=== PATIENT | male | born 1960 ===

== ENCOUNTER 2022-09-11 02:22 | Emergency (ER) | payer BC ==
[~2022-09-11] VITALS: Ht 180 cm; Wt 105.0 kg
--- NOTE | 2022-09-11 02:40 | ED Dyspnea ---
General Chief Complaint: Respiratory Problems Stated Complaint: SOA/WHEEZING Nursing Triage Note: coughing, wheezing, sob x1 week, worse tonight. Source of Information: Patient History of Present Illness Date Seen by Provider: September 11, 2022 Time Seen by Provider: 02:28 Initial Comments PT ARRIVES VIA POV PT STATES HE HAS BEEN ILL FOR THE LAST WEEK WITH COUGH, SHORTNESS OF BREATH AND WHEEZING SYMPTOMS HAVE BEEN WORSE TONIGHT NO FEVER NO SWELLING IN LEGS/ FEET OCCASIONAL SHARP PAIN IN CHEST PT HAS HISTORY OF RESTRICTIVE AIRWAY DISEASE, HE HAS USED XOPENEX POCKET NEBULIZER PRN IN THE PAST, BUT HAS NOT HAD TO USE ONE IN A LONG TIME. HE HAS NEVER REQUIRED A VENTILATOR HE HAS HISTORY ATRIAL FIBRILLATION, P.E. AND NSTEMI X 2, AND IS MAINTAINED ON ELIQUIS, FLECANIDE, METROPOLOL. HE HAS HAD COVID VACCINE X 3, AND FLU VACCINE FOR THIS SEASON NO HISTORY OF SMOKING, ALCOHOL OR DRUG USE. 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 Allergies and Home Medications Allergies Coded Allergies: moxifloxacin (Verified Allergy, Unknown, 09/11/22) Patient Home Medication List Home Medication List Reviewed: Yes Doxycycline Hyclate (Doxycycline Hyclate) 100 Mg Tablet, 100 MG PO BID Prescribed by: ANKITA SCHULTE on 09/11/22336 Levalbuterol HCl (Xopenex) 0.63 Mg/3 Ml Vial.neb, 0.63 MG INH Q8H Prescribed by: ANKITA SCHULTE on 09/11/22336 Methylprednisolone (Medrol) 4 Mg Tab.ds.pk, 4 MG PO UD Prescribed by: ANKITA SCHULTE on 09/11/22336 Review of Systems Review of Systems Constitutional: no symptoms reported EENTM: no symptoms reported Respiratory: see HPI, cough, short of breath, wheezing Cardiovascular: see HPI, chest pain; No edema Gastrointestinal: no symptoms reported Genitourinary: no symptoms reported Musculoskeletal: no symptoms reported Skin: no symptoms reported Psychiatric/Neurological: No Symptoms Reported Endocrine: No Symptoms Reported Hematologic/Lymphatic: No Symptoms Reported Past Jldaaaq-Snjeeq-Ibbsha Hx Patient Social History Tobacco Use?: No Substance use?: No Alcohol Use?: No Pt feels they are or have been: No Immunizations Up To Date First/Initial COVID19 Vaccinat: x3 Past Medical History Surgery/Hospitalization HX: restrictive airway dx, afib, p.e., nstemi x2 Respiratory: Yes (RESTRICTIVE AIRWAY DISEASE) Pulmonary Embolism Cardiac: Yes (NSTEMI) Atrial Fibrillation, Coronary Artery Disease, Heart Attack Neurological: No Genitourinary: No Gastrointestinal: No Musculoskeletal: No Endocrine: No HEENT: No Psychosocial: No Integumentary: No Blood Disorders: No Physical Exam Vital Signs Vital Signs - First Documented 09/11/22 09/11/22 02:28 03:19 Temp 36.2 Pulse 70 Resp 18 B/P (MAP) 118/72 (87) Pulse Ox 94 O2 Delivery Room Air O2 Flow Rate 0 FiO2 21 Capillary Refill : Less Than 3 Seconds Height, Weight, BMI Height: '" Weight: lbs. oz. 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 Skin: Normal Color, Warm/Dry Progress/Results/Core Measures Results/Orders Lab Results Laboratory Tests Test 09/11/22 02:30 09/11/22 02:34 Range/Units Influenza Type A (RT-PCR) Not Detected Not Detecte Influenza Type B (RT-PCR) Not Detected Not Detecte SARS-CoV-2 RNA (RT-PCR) Not Detected Not Detecte White Blood Count 6.1 4.3-11.0 10^3/uL Red Blood Count 4.48 4.30-5.52 10^6/uL Hemoglobin 14.5 13.3-17.7 g/dL Hematocrit 43 40-54 % Mean Corpuscular Volume 95 80-99 fL Mean Corpuscular Hemoglobin 32 25-34 pg Mean Corpuscular Hemoglobin Concent 34 32-36 g/dL Red Cell Distribution Width 13.2 10.0-14.5 % Platelet Count 214 130-400 10^3/uL Mean Platelet Volume 9.3 9.0-12.2 fL Immature Granulocyte % (Auto) 0 % Neutrophils (%) (Auto) 26 L 42-75 % Lymphocytes (%) (Auto) 51 H 12-44 % Monocytes (%) (Auto) 12 0-12 % Eosinophils (%) (Auto) 11 H 0-10 % Basophils (%) (Auto) 1 0-10 % Neutrophils # (Auto) 1.6 L 1.8-7.8 10^3/uL Lymphocytes # (Auto) 3.1 1.0-4.0 10^3/uL Monocytes # (Auto) 0.7 0.0-1.0 10^3/uL Eosinophils # (Auto) 0.7 H 0.0-0.3 10^3/uL Basophils # (Auto) 0.1 0.0-0.1 10^3/uL Immature Granulocyte # (Auto) 0.0 0.0-0.1 10^3/uL Erythrocyte Sedimentation Rate 11 0-30 MM/HR Prothrombin Time 13.7 12.2-14.7 SEC INR Comment 1.0 0.8-1.4 Activated Partial Thromboplast Time 27 24-35 SEC Sodium Level 141 135-145 MMOL/L Potassium Level 4.0 3.6-5.0 MMOL/L Chloride Level 110 H 98-107 MMOL/L Carbon Dioxide Level 21 21-32 MMOL/L Anion Gap 10 5-14 MMOL/L Blood Urea Nitrogen 21 H 7-18 MG/DL Creatinine 1.19 0.60-1.30 MG/DL Estimat Glomerular Filtration Rate 69 BUN/Creatinine Ratio 18 Glucose Level 132 H 70-105 MG/DL Calcium Level 8.9 8.5-10.1 MG/DL Corrected Calcium 9.1 8.5-10.1 MG/DL Magnesium Level 1.9 1.6-2.4 MG/DL Total Bilirubin 0.4 0.1-1.0 MG/DL Aspartate Amino Transf (AST/SGOT) 14 5-34 U/L Alanine Aminotransferase (ALT/SGPT) 21 0-55 U/L Alkaline Phosphatase 50 40-136 U/L Total Creatine Kinase 52 30-200 U/L Creatine Kinase MB 0.9 <6.6 NG/ML Myoglobin 24.2 10.0-92.0 NG/ML Troponin I < 0.028 <0.028 NG/ML C-Reactive Protein High Sensitivity 0.23 0.00-0.50 MG/DL B-Type Natriuretic Peptide 63.2 <100.0 PG/ML Total Protein 7.0 6.4-8.2 GM/DL Albumin 3.7 3.2-4.5 GM/DL My Orders Orders - ANKITA SCHULTE DO Ed Iv/Invasive Line Start (09/11/22 02:27) Ekg Tracing (09/11/22 02:) O2 (09/11/22) Monitor-Rhythm Ecg Trace Only (09/11/22) Bnp Thang (09/11/22:) Cbc With Automated Diff (09/11/22) Comprehensive Metabolic Panel (09/11/22) Creatine Kinase (09/11/22) Creatine Kinase Mb (09/11/22) Hs C Reactive Protein (09/11/22) Magnesium (09/11/22) Protime With Inr (09/11/22) Partial Thromboplastin Time (09/11/22:) Erythrocyte Sedimentation Rate (09/11/22:) Myoglobin Serum (09/11/22 02:) Troponin I Thang (09/11/22:) Chest 1 View, Ap/Pa Only (09/11/22 02:27) Covid 19 Inhouse Test (09/11/22 02:) Influenza A And B By Pcr (09/11/22 02:27) Isolation Central Supply Req (09/11/22 02:27) Aspirin Chewable Tablet (Baby Aspirin Ch (09/11/22 02:45) Methylprednisolone Sod Succ (Solu-Medrol (09/11/22 03:00) Levalbuterol (Non-Formulary) (Xopenex (N (09/11/22 03:00) Rt Request For Service (09/11/22 02:52) Levalbuterol (Non-Formulary) (Xopenex (N (09/11/22 03:12) Ceftriaxone Iv/Im (Rocephin Iv/Im) (09/11/22 03:30) Medications Given in ED Current Medications Medications Dose Ordered Sig/Christopher Route Start Time Stop Time Status Last Admin Dose Admin Aspirin 324 mg ONCE ONCE PO 09/11/22 02:45 09/11/22 02:47 DC 09/11/22 02:50 324 MG Ceftriaxone Sodium 1000 mg/ Sodium Chloride 50 ml @ 100 mls/hr ONCE ONCE IV 09/11/22 03:30 09/11/22 03:43 DC 09/11/22 03:31 100 MLS/HR Levalbuterol HCl 1.25 mg ONCE ONCE INH 09/11/22 03:00 09/11/22 03:01 DC 09/11/22 03:15 1.25 MG Methylprednisolone Sodium Succinate 125 mg ONCE ONCE IVP 09/11/22 03:00 09/11/22 03:01 DC 09/11/22 02:58 125 MG Vital Signs/I&O 09/11/22 09/11/22 09/11/22 02:28 03:19 03:40 Temp 36.2 36.4 Pulse 70 71 Resp 18 16 B/P (MAP) 118/72 (87) 118/72 Pulse Ox 94 97 98 O2 Delivery Room Air Nasal Cannula Room Air O2 Flow Rate 0 FiO2 21 Blood Pressure Mean: 87 Progress Progress Note : Progress Note O2 SATS IN MID 90'S, STATES NORMALLY HIS O2 SAT IS 98% PT REQUESTING SOLU-MEDROL AND XOPENEX NEB TREATMENT ON ARRIVAL. STATES HE FEELS BETTER AFTER STEROIDS AND NEBULIZER. ALSO GAVE ROCEPHIN NO DETERIORATION IN PT'S CONDITION DURING ER STAY. VITALS STABLE NO COUGH NO DYSPNEA NO HYPOXIA NO FEVER DURING ER STAY DISCUSSED TEST RESULTS, MEDICATIONS / PRESCRIPTIONS. PT IS AGREEABLE TO PLAN OF CARE Initial ECG Impression Date: September 11, 2022 Initial ECG Impression Time: 02:35 Initial ECG Rate: 70 Initial ECG Rhythm: Normal Sinus Initial ECG Intervals ID 101 QRS 125 QT/QTC 433/453 Initial ECG Comparisson: No Previous ECG Available Comment INTERPRETED BY ME Diagnostic Imaging Comments CXR--NO ACUTE PROCESS, PENDING RADIOLOGIST REVIEW Reviewed: Reviewed by Me Departure Impression Primary Impression: Reactive airway disease with acute exacerbation Disposition: 01 HOME, SELF-CARE Condition: Improved Departure-Patient Inst. Decision time for Depature: 03:35 Referrals: NO,LOCAL PHYSICIAN (PCP/Family) Primary Care Physician Patient Instructions: Asthma, Adult ED Add. Discharge Instructions: HOME, REST All discharge instructions reviewed with patient and/or family. Voiced understanding. Scripts Doxycycline Hyclate (Doxycycline Hyclate) 100 Mg Tablet 100 MG PO BID, #20 TAB 0 Refills Prov: ANKITA SCHULTE DO 09/11/22 Methylprednisolone (Medrol) 4 Mg Tab.ds.pk 4 MG PO UD for 6 Days, #21 PKG PER DOSE PACK INSTRUCTIONS Prov: ANKITA SCHULTE DO 09/11/22 Levalbuterol HCl (Xopenex) 0.63 Mg/3 Ml Vial.neb 0.63 MG INH Q8H for Wheezing, #1 EA Prov: ANKITA SCHULTE DO 09/11/22 ANKITA SCHULTE DO September 11, 2022 02:40
[2022-09-11 02:43] LABS: BASOPHILS # (AUTO) 0.1 10^3/uL (0.0-0.1); BASOPHILS % (AUTO) 1 % (0-10); EOSINOPHILS # (AUTO) 0.7 10^3/uL (0.0-0.3); EOSINOPHILS % (AUTO) 11 % (0-10); HEMATOCRIT 43 % (40-54); HEMOGLOBIN 14.5 g/dL (13.3-17.7); LYMPHOCYTES # (AUTO) 3.1 10^3/uL (1.0-4.0); LYMPHOCYTES % (AUTO) 51 % (12-44); MEAN CORPUSCULAR HEMOGLOBIN 32 pg (25-34); MEAN CORPUSCULAR HGB CONC 34 g/dL (32-36); MEAN CORPUSCULAR VOLUME 95 fL (80-99); MEAN PLATELET VOLUME 9.3 fL (9.0-12.2); MONOCYTES # (AUTO) 0.7 10^3/uL (0.0-1.0); MONOCYTES % (AUTO) 12 % (0-12); NEUTROPHILS # (AUTO) 1.6 10^3/uL (1.8-7.8); NEUTROPHILS % (AUTO) 26 % (42-75); PLATELET COUNT 214 10^3/uL (130-400); WHITE BLOOD COUNT 6.1 10^3/uL (4.3-11.0)
[2022-09-11] MEDS ORDERED: ASPIRIN 81 MG CHEW (CHILDREN'S ASA) PO ONE (02:45)
[2022-09-11 02:56] LABS: ALBUMIN 3.7 GM/DL (3.2-4.5); CHLORIDE 110 MMOL/L (98-107); SODIUM 141 MMOL/L (135-145)
[2022-09-11 02:57] LABS: CALCIUM 8.9 MG/DL (8.5-10.1)
[2022-09-11 02:58] LABS: GLUCOSE 132 MG/DL (70-105); PROTHROMBIN TIME PATIENT 13.7 SEC (12.2-14.7)
[2022-09-11 02:59] LABS: ERYTHROCYTE SEDIMENTATION RATE 11 MM/HR (0-30)
[2022-09-11 03:00] LABS: BILIRUBIN,TOTAL 0.4 MG/DL (0.1-1.0); CARBON DIOXIDE 21 MMOL/L (21-32)
[2022-09-11] MEDS ORDERED: RT-LEVALBUTEROL (XOPENEX) 1.25 MG/3 ML NEB NON-FORMULARY INH ONE (03:00)
[2022-09-11] MEDS ORDERED: methylPREDNISolone 125 MG (Solu-MEDROL) VIAL IVP ONE (03:00)
[2022-09-11 03:02] LABS: ALKALINE PHOSPHATASE 50 U/L (40-136); CREATININE SERUM 1.19 MG/DL (0.60-1.30); GFR ESTIMATED 69
[2022-09-11 03:03] LABS: BUN/CREATININE RATIO 18
[2022-09-11 03:05] LABS: ALANINE AMINOTRANSFERASE 21 U/L (0-55); MAGNESIUM 1.9 MG/DL (1.6-2.4)
[2022-09-11 03:06] LABS: CREATINE KINASE 52 U/L (30-200)
[2022-09-11 03:12] LABS: CREATINE KINASE MB 0.9 NG/ML (<6.6)
[2022-09-11] MEDS ORDERED: RT-LEVALBUTEROL (XOPENEX) 1.25 MG/3 ML NEB NON-FORMULARY ONE (03:12)
[2022-09-11] MEDS ORDERED: cefTRIAXone IV/IM 1,000 MG in NS (IVPB) 50 ML IV ONE (03:30)
[2022-09-11] MEDS ORDERED: LEVA0.6320 INH (03:37)
[2022-09-11] MEDS ORDERED: METH4TAB PO (03:37)
[2022-09-11] MEDS ORDERED: DOXY100T2 PO (03:37)
[2022-09-11 03:40] VITALS: BP 118/72
--- NOTE | 2022-09-11 06:37 | Diagnostic Imaging Report ---
Indication: Shortness of breath and coughing x1 week Portable chest 2:38 AM Heart size and pulmonary vascularity are normal. Lungs are clear. There are no effusions or pneumothoraces. IMPRESSION: No acute abnormalities in the chest Dictated by: Dictated on workstation # [id number]
== END 2022-09-11 03:43 | disposition home or self-care (01) ==
LOC: ER 02:24
DX: J45.901 Unspecified asthma with (acute) exacerbation (principal); I48.91 Unspecified atrial fibrillation; I25.2 Old myocardial infarction; Z86.711 Personal history of pulmonary embolism; Z88.1 Allergy status to other antibiotic agents; Z20.822 Contact with and (suspected) exposure to COVID-19; Z79.01 Long term (current) use of anticoagulants; Z79.899 Other long term (current) drug therapy
CPT/HCPCS: 36415; 36600; 71045; 80053; 82550; 82553; 83735; 83874; 83880; 84484; 85025; 85610; 85652; 85730; 86141; 87636; 93005; 93041; 94640; 94664; 96374; 96375

== ENCOUNTER 2023-01-18 02:07 | Emergency (ER) | payer BC ==
[~2023-01-18] VITALS: Ht 180.3 cm; Wt 106.6 kg
[~2023-01-18 02:07] MED LIST: DOXY100T2 PO; LEVA0.6320 INH; METH4TAB PO
[2023-01-18] MEDS ORDERED: ASPIRIN 81 MG CHEWABLE TABLET PO ONE (02:15)
[2023-01-18] MEDS ORDERED: NITROGLYCERIN 0.4 MG SL TABLETS BTL 25'S SL PRN (02:15)
[2023-01-18 02:28] LABS: BASOPHILS % (AUTO) 1 % (0-10); EOSINOPHILS # (AUTO) 0.5 10^3/uL (0.0-0.3); EOSINOPHILS % (AUTO) 8 % (0-10); HEMATOCRIT 45 % (40-54); LYMPHOCYTES # (AUTO) 3.1 10^3/uL (1.0-4.0); LYMPHOCYTES % (AUTO) 46 % (12-44); MEAN CORPUSCULAR HEMOGLOBIN 32 pg (25-34); MEAN CORPUSCULAR HGB CONC 34 g/dL (32-36); MEAN CORPUSCULAR VOLUME 96 fL (80-99); MEAN PLATELET VOLUME 9.2 fL (9.0-12.2); MONOCYTES # (AUTO) 0.8 10^3/uL (0.0-1.0); MONOCYTES % (AUTO) 12 % (0-12); NEUTROPHILS # (AUTO) 2.2 10^3/uL (1.8-7.8); NEUTROPHILS % (AUTO) 32 % (42-75); PLATELET COUNT 232 10^3/uL (130-400); WHITE BLOOD COUNT 6.6 10^3/uL (4.3-11.0)
[2023-01-18] MEDS ORDERED: FAMOTIDINE INJ 20MG/2ML VIAL IVP ONE (02:30)
[2023-01-18] MEDS ORDERED: diphenhydrAMINE INJ 50 MG/ML VIAL IVP ONE (02:30)
[2023-01-18 02:32] LABS: ALBUMIN 3.9 GM/DL (3.2-4.5); CHLORIDE 107 MMOL/L (98-107); POTASSIUM 4.1 MMOL/L (3.6-5.0); SODIUM 141 MMOL/L (135-145)
[2023-01-18 02:33] LABS: AMYLASE 116 U/L (25-125); CALCIUM 9.3 MG/DL (8.5-10.1)
[2023-01-18 02:34] LABS: GLUCOSE 160 MG/DL (70-105); TOTAL PROTEIN 7.2 GM/DL (6.4-8.2)
[2023-01-18 02:35] LABS: CARBON DIOXIDE 22 MMOL/L (21-32)
[2023-01-18 02:36] LABS: BILIRUBIN,TOTAL 0.3 MG/DL (0.1-1.0)
[2023-01-18 02:37] LABS: ALKALINE PHOSPHATASE 59 U/L (40-136)
[2023-01-18 02:38] LABS: CREATININE SERUM 1.33 MG/DL (0.60-1.30); GFR ESTIMATED 60
[2023-01-18 02:39] LABS: BUN/CREATININE RATIO 15
[2023-01-18 02:41] LABS: ALANINE AMINOTRANSFERASE 23 U/L (0-55); PROTHROMBIN TIME PATIENT 12.9 SEC (12.2-14.7)
[2023-01-18 02:42] LABS: CREATINE KINASE 59 U/L (30-200); LIPASE 45 U/L (8-78)
[2023-01-18 02:44] LABS: FIBRIN DEGRADATION PRODUCTS 0.29 UG/ML (0.00-0.49)
[2023-01-18 02:48] LABS: CREATINE KINASE MB 0.9 NG/ML (<6.6)
--- NOTE | 2023-01-18 02:53 | ED Cardiac General ---
History of Present Illness General Chief Complaint: Cardiac/General Problems Stated Complaint: CP Source: patient, old records History of Present Illness Date Seen by Provider: Jan 18, 2023 Time Seen by Provider: 02:12 Initial Comments PT ARRIVES VIA POV PT STATES "I'M BACK IN AFIB WITH RVR" PT STATES SYMPTOMS BEGAN AROUND 2300 WHILE WATCHING A FOOTBALL GAME PT HAS A PHONE SELIN THAT RECORDS EKG/RHYTHM, SHOWING PT TO BE IN AFIB WITH HR 128 HE HAD SOME CHEST PAIN/PRESSURE WITH IT HE HAS ALSO HAD SOME SHORTNESS OF BREATH, AND A LITTLE LIGHTHEADEDNESS NO SWEATS NO NAUSEA/VOMITING NO SWELLING IN LEGS/FEET SYMPTOMS ARE BETTER NOW PT IS ON TOPROL XL 25 MG BID AND XARELTO HE GOES TO [facility] FOR MEDICAL CARE--HE IS TO HAVE SOTALOL INFUSION ON 02/05/23 FOR THE FIRST TIME. 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 Allergies and Home Medications Allergies Coded Allergies: moxifloxacin (Verified Allergy, Unknown, 09/11/22) Patient Home Medication List Home Medication List Reviewed: Yes Doxycycline Hyclate (Doxycycline Hyclate) 100 Mg Tablet, 100 MG PO BID Prescribed by: ANKITA SCHULTE on 09/11/22336 Levalbuterol HCl (Xopenex) 0.63 Mg/3 Ml Vial.neb, 0.63 MG INH Q8H Prescribed by: ANKITA SCHULTE on 09/11/22336 Methylprednisolone (Medrol) 4 Mg Tab.ds.pk, 4 MG PO UD Prescribed by: ANKITA SCHULTE on 09/11/22336 Review of Systems Review of Systems Constitutional: see HPI EENTM: No Symptoms Reported Respiratory: See HPI Cardiovascular: See HPI Gastrointestinal: No Symptoms Reported Genitourinary: No Symptoms Reported Musculoskeletal: no symptoms reported Skin: no symptoms reported Psychiatric/Neurological: No Symptoms Reported Endocrine: No Symptoms Reported Hematologic/Lymphatic: No Symptoms Reported Past Hefjgxf-Aauced-Walcht Hx Patient Social History Tobacco Use?: No Substance use?: No Alcohol Use?: No Immunizations Up To Date First/Initial COVID19 Vaccinat: x3 Past Medical History Surgery/Hospitalization HX: restrictive airway dx, afib, p.e., nstemi x2 Surgeries: No Respiratory: Yes (RESTRICTIVE AIRWAY DISEASE) Pulmonary Embolism Cardiac: Yes (NSTEMI) Atrial Fibrillation, Coronary Artery Disease, Heart Attack Neurological: No Genitourinary: No Gastrointestinal: No Musculoskeletal: No Endocrine: No HEENT: No Psychosocial: No Integumentary: No Blood Disorders: No Physical Exam Vital Signs Vital Signs - First Documented 01/18/23 02:13 Temp 36.8 Pulse 94 Resp 16 B/P (MAP) 113/64 (80) Pulse Ox 96 O2 Delivery Room Air Capillary Refill : Height, Weight, BMI Height: '" Weight: lbs. oz. 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 Skin: Normal Color, Warm/Dry Progress/Results/Core Measures Results/Orders Lab Results Laboratory Tests Test 01/18/23 02:15 Range/Units White Blood Count 6.6 4.3-11.0 10^3/uL Red Blood Count 4.67 4.30-5.52 10^6/uL Hemoglobin 15.0 13.3-17.7 g/dL Hematocrit 45 40-54 % Mean Corpuscular Volume 96 80-99 fL Mean Corpuscular Hemoglobin 32 25-34 pg Mean Corpuscular Hemoglobin Concent 34 32-36 g/dL Red Cell Distribution Width 12.5 10.0-14.5 % Platelet Count 232 130-400 10^3/uL Mean Platelet Volume 9.2 9.0-12.2 fL Immature Granulocyte % (Auto) 0 % Neutrophils (%) (Auto) 32 L 42-75 % Lymphocytes (%) (Auto) 46 H 12-44 % Monocytes (%) (Auto) 12 0-12 % Eosinophils (%) (Auto) 8 0-10 % Basophils (%) (Auto) 1 0-10 % Neutrophils # (Auto) 2.2 1.8-7.8 10^3/uL Lymphocytes # (Auto) 3.1 1.0-4.0 10^3/uL Monocytes # (Auto) 0.8 0.0-1.0 10^3/uL Eosinophils # (Auto) 0.5 H 0.0-0.3 10^3/uL Basophils # (Auto) 0.0 0.0-0.1 10^3/uL Immature Granulocyte # (Auto) 0.0 0.0-0.1 10^3/uL Prothrombin Time 12.9 12.2-14.7 SEC INR Comment 1.0 0.8-1.4 Activated Partial Thromboplast Time 26 24-35 SEC D-Dimer 0.29 0.00-0.49 UG/ML Sodium Level 141 135-145 MMOL/L Potassium Level 4.1 3.6-5.0 MMOL/L Chloride Level 107 98-107 MMOL/L Carbon Dioxide Level 22 21-32 MMOL/L Anion Gap 12 5-14 MMOL/L Blood Urea Nitrogen 20 H 7-18 MG/DL Creatinine 1.33 H 0.60-1.30 MG/DL Estimat Glomerular Filtration Rate 60 BUN/Creatinine Ratio 15 Glucose Level 160 H 70-105 MG/DL Calcium Level 9.3 8.5-10.1 MG/DL Corrected Calcium 9.4 8.5-10.1 MG/DL Magnesium Level 2.0 1.6-2.4 MG/DL Total Bilirubin 0.3 0.1-1.0 MG/DL Aspartate Amino Transf (AST/SGOT) 15 5-34 U/L Alanine Aminotransferase (ALT/SGPT) 23 0-55 U/L Alkaline Phosphatase 59 40-136 U/L Total Creatine Kinase 59 30-200 U/L Creatine Kinase MB 0.9 <6.6 NG/ML Myoglobin 27.9 10.0-92.0 NG/ML Troponin I < 0.028 <0.028 NG/ML B-Type Natriuretic Peptide 25.2 <100.0 PG/ML Total Protein 7.2 6.4-8.2 GM/DL Albumin 3.9 3.2-4.5 GM/DL Amylase Level 116 25-125 U/L Lipase 45 8-78 U/L My Orders Orders - ANKITA SCHULTE DO Cbc With Automated Diff (01/18/23 02:11) Magnesium (01/18/23 02:11) Chest 1 View, Ap/Pa Only (01/18/23 02:11) Ekg Tracing (01/18/23 02:11) Comprehensive Metabolic Panel (01/18/23 02:11) Myoglobin Serum (01/18/23 02:11) Protime With Inr (01/18/23 02:11) Partial Thromboplastin Time (01/18/23 02:11) O2 (01/18/23 02:11) Monitor-Rhythm Ecg Trace Only (01/18/23 02:11) Ed Iv/Invasive Line Start (01/18/23 02:11) Creatine Kinase (01/18/23 02:11) Creatine Kinase Mb (01/18/23 02:11) Lipase (01/18/23 02:11) Amylase (01/18/23 02:11) Bnp [place] (01/18/23 02:11) Fibrin Degradation Products (01/18/23 02:11) Troponin I [place] (01/18/23 02:11) Nitroglycerin 0.4 Mg Btl 25's (Nitroglyc (01/18/23 02:15) Aspirin Chewable Tablet (Aspirin Chewabl (01/18/23 02:15) Diphenhydramine Injection (Diphenhydram (01/18/23 02:30) Medications Given in ED Vital Signs/I&O 01/18/23 01/18/23 02:13 03:08 Temp 36.8 36.7 Pulse 94 100 Resp 16 16 B/P (MAP) 113/64 (80) 109/82 Pulse Ox 96 95 O2 Delivery Room Air Room Air Progress Progress Note : Progress Note VITALS ON ARRIVAL: TEMP 36.8=98.2, HR 94, RR 16 BP 113/64, O2 SAT 96% ON ROOM AIR GIVEN ASPIRIN PT IS IN NORMAL SINUS RHYTHM ON ARRIVAL HERE, AND IS CURRENTLY SYMPTOM-FREE PT REMAINED IN NORMAL SINUS RHYTHM THROUGH OUT ER STAY AND VITALS REMAIN STABLE LABS: -CBC NORMAL -CMP WITH CR 1.33, GLUCOSE 160, OTHERWISE NORMAL -TROPONIN NEGATIVE -BNP NORMAL -COAGULATION STUDIES NORMAL -D-DIMER NEGATIVE EKG NORMAL SINUS RHYTHM WITHOUT ACUTE ST CHANGES CXR IS UNREMARKABLE DISCUSSED TEST RESULTS, FOLLOW UP AND RETURN PRECAUTIONS REVIEWED SINGLE PRIOR ER VISIT HERE. Initial ECG Impression Date: Jan 18, 2023 Initial ECG Impression Time: 02:16 Initial ECG Rate: 100 Initial ECG Rhythm: Normal Sinus Initial ECG Intervals MN 182 QRS 112 QT/QTC 349/406 Initial ECG Impression: Nonspecific Changes Initial ECG Comparisson: Unchanged Comment INTERPRETED BY ME Diagnostic Imaging Comments CXR--NO ACUTE PROCESS, PENDING RADIOLOGIST REVIEW Reviewed: Reviewed by Me Departure Impression Primary Impression: Paroxysmal atrial fibrillation with rapid ventricular response Disposition: HOME, SELF-CARE Condition: Improved Departure-Patient Inst. Decision time for Depature: 02:52 Referrals: NO,LOCAL PHYSICIAN (PCP/Family) Primary Care Physician Patient Instructions: Atrial fibrillation Add. Discharge Instructions: CONTINUE YOUR CURRENT MEDICATIONS FOLLOW UP AT [facility] SCHEDULED RETURN TO ER IF YOUR SYMPTOMS RETURN All discharge instructions reviewed with patient and/or family. Voiced understanding. ANKITA SCHULTE DO Jan 18, 2023 02:53
[2023-01-18 03:08] VITALS: BP 109/82
--- NOTE | 2023-01-18 06:24 | Diagnostic Imaging Report ---
EXAMINATION: Chest 1 view HISTORY: Chest pain COMPARISON: 09/11/2022 FINDINGS: Heart size and pulmonary vasculature are normal. The lungs are clear without consolidation, pleural effusion, or pneumothorax. The osseous structures are intact. IMPRESSION: 1. No acute radiographic abnormality in the chest. Dictated by: Dictated on workstation # [id number]
== END 2023-01-18 03:08 | disposition home or self-care (01) ==
LOC: EDUNIT# 02:07 → ER 02:09
DX: I48.0 Paroxysmal atrial fibrillation (principal); Z28.311 Partially vaccinated for COVID-19
CPT/HCPCS: 36415; 71045; 80053; 82150; 82550; 82553; 83690; 83735; 83874; 83880; 84484; 85025; 85379; 85610; 85730; 93005; 93041